=== PATIENT | female | born 1975 | race Caucasian/White ===

== ENCOUNTER 2020-04-25 13:09 | Inpatient (IN) | payer MEDICAID, SELFPAY ==
[~2020-04-25] VITALS: Ht 154.9 cm; Wt 76.7 kg
[2020-04-25] MEDS ORDERED: MORPHINE SULFATE 5 MG/ML VIAL IVP PRN (13:20)
[2020-04-25] MEDS ORDERED: METHYLERGONOVINE 0.2 MG/ML AMP IM SCH (13:20)
[2020-04-25] MEDS ORDERED: OXYTOCIN 20 UNITS in LACTATED RINGERS 1,000 ML IV SCH (13:20)
[2020-04-25] MEDS ORDERED: LACTATED RINGERS 1,000 ML IV SCH (13:20)
[2020-04-25] MEDS ORDERED: ONDANSETRON 4 MG/2 ML VIAL IVP PRN (13:20)
[2020-04-25 13:38] VITALS: BP 156/66
[2020-04-25] MEDS ORDERED: MORPHINE SULFATE 10 MG/ML VIAL IVP PRN (13:45)
[2020-04-25 14:05] LABS: BASOPHILS % (AUTO) 0.2 % (0.0-2.0); EOSINOPHILS % (AUTO) 0.1 % (0.0-4.0); HEMATOCRIT 37.6 % (36-48); HEMOGLOBIN 12.8 g/dL (12.0-16.0); LYMPHOCYTES # (AUTO) 1.6 K/uL (2.5-16.5); MEAN CORPUSCULAR HEMOGLOBIN 32 pg (27-31); MEAN CORPUSCULAR HGB CONC 34 g/dL (33-37); MEAN CORPUSCULAR VOLUME 92.7 fL (80-94); MONOCYTES # (AUTO) 0.5 K/uL (0.8-1.0); MONOCYTES % (AUTO) 5.4 % (1.7-9.3); NEUTROPHILS # (AUTO) 6.6 K/uL (1.8-7.7); NEUTROPHILS % (AUTO) 76.3 % (42.2-75.2); PLATELET COUNT (AUTO) 147 K/uL (140-450); RED BLOOD CELL COUNT(AUTO) 4.06 MIL/uL (4.20-5.40); RED CELL DISTRIBUTION WIDTH 13.5 % (11.6-13.7); WHITE BLOOD COUNT (AUTO) 8.6 K/uL (4.8-10.8)
[2020-04-25 14:29] LABS: ALBUMIN 2.9 g/dL (3.4-5.0); ANION GAP 15.8 (8-16); CARBON DIOXIDE 19.9 mmol/L (21-32); CREATININE 0.5 mg/dL (0.6-1.3); POTASSIUM 3.7 mmol/L (3.5-5.1); TOTAL BILIRUBIN 0.3 mg/dL (0.0-1.0)
[2020-04-25 14:39] LABS: APPEARANCE,URINE SL CLOUDY (CLEAR); BILIRUBIN,URINE NEGATIVE (NEGATIVE); BLOOD, URINE NEGATIVE (NEGATIVE); COLOR,URINE YELLOW (YELLOW); LEUKOCYTE ESTERASE ,URINE TRACE (NEGATIVE); NITRITE, URINE NEGATIVE (NEGATIVE); UGLUCOSE NEGATIVE (NEGATIVE)
[2020-04-25 15:27] LABS: RBC,URINE 0-5 /HPF (0-5)
[2020-04-25] MEDS ORDERED: MISOPROSTOL 25 MCG TAB ONE (16:51)
[2020-04-25] MEDS ORDERED: MISOPROSTOL 25 MCG TAB VG SCH ×2 (18:00)
[2020-04-25] MEDS ORDERED: OXYTOCIN 20 UNITS/LR PREMIX 1,000 ML IV ONE (22:25)
[2020-04-25] MEDS ORDERED: LIDOCAINE 1% 500 MG/50 ML VIAL ONE (22:47)
[2020-04-26] MEDS ORDERED: HYDROcodone/APAP 5/325 MG 1 TAB TAB PO PRN
[2020-04-26] MEDS ORDERED: IBUPROFEN 800 MG TAB PO PRN
[2020-04-26] MEDS ORDERED: MEASLES, MUMPS, AND RUBELLA 1 VIAL SQVAC PRN
[2020-04-26] MEDS ORDERED: oxyCODONE/APAP 5/325 MG 1 TAB TAB PO PRN
[2020-04-26] MEDS ORDERED: METHYLERGONOVINE 0.2 MG/ML AMP IM PRN
[2020-04-26] MEDS ORDERED: OXYTOCIN 10 UNITS/ML VIAL IM PRN
[2020-04-26] MEDS ORDERED: TEMAZEPAM 15 MG CAP PO PRN
[2020-04-26] MEDS ORDERED: IBUPROFEN 800 MG TAB ONE (00:03)
--- NOTE | 2020-04-26 06:52 | NUR ---
PATIENT HAS BEEN SCREENED AND CATEGORIZED LOW NUTRITION RISK. PATIENT WILL BE SEEN WITHIN 7 DAYS OF ADMISSION. 05/02/20 IVANA BENAVIDEZ MBA,RD
[2020-04-26 07:44] LABS: HEMATOCRIT 34.1 % (36-48); HEMOGLOBIN 11.6 g/dL (12.0-16.0)
[2020-04-26] MEDS ORDERED: DOCUSATE SOD/SENNA 50/8.6 MG 1 TAB PO SCH ×2 (21:00)
== END 2020-04-27 17:35 | disposition home or self-care (01) | DRG 560 ==
LOC: MLD 13:09 → MFCC 04-26 00:40
PROVIDERS: ADMIT Obstetrics & Gynecology; ATTEND Obstetrics & Gynecology
PROC: 3E0D7GC Introduction of Other Therapeutic Substance into Mouth and Pharynx, Via Natural or Artificial Opening (ICD-10-PCS; principal; 2020-04-25)
PROC: 10E0XZZ Delivery of Products of Conception, External Approach (ICD-10-PCS; 2020-04-25)
PROC: 0KQM0ZZ Repair Perineum Muscle, Open Approach (ICD-10-PCS; 2020-04-25)
DX: O36.8130 Decreased fetal movements, third trimester, not applicable or unspecified (principal); O24.420 Gestational diabetes mellitus in childbirth, diet controlled; O60.23X0 Term delivery with preterm labor, third trimester, not applicable or unspecified; Z37.0 Single live birth; Z20.822 Contact with and (suspected) exposure to COVID-19; Z3A.38 38 weeks gestation of pregnancy; O70.1 Second degree perineal laceration during delivery; O69.1XX0 Labor and delivery complicated by cord around neck, with compression, not applicable or unspecified
CPT/HCPCS: 36415; 59200; 59409; 76815; 80053; 81001; 85018; 85025; 86592; 86886; 86900; 86901; 87086; J2001; J2590; J7120